=== PATIENT | male | born 2000 | race Caucasian/White ===

== ENCOUNTER 2023-10-30 19:47 | Emergency (ER) | payer BC, SELFPAY ==
[2023-10-30 20:01] VITALS: BP 142/79; PULSE 80; RESP 16; TEMP 36.1; O2SAT 100; BMI 21.0
--- NOTE | 2023-10-30 20:04 | ED_ITS ---
HPI - General Adult General Chief complaint: Head Injury/Pain Stated complaint: Hit in the face by softball Saturday Time Seen by Provider: 10/30/23 20:04 History of Present Illness HPI narrative: Pt aox4, ABCs intact. Pt arrives for evaluation of possible broken nose. Patient was hit in the face on Saturday night by a softball. Patient states that the ball was being thrown to him and it hit him square in the nose. 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 23 year old man presenting to the emergency department with concern of injury to his face. Accompanied by his dad. Mom is not here in particular is concerned. Has a history of cleft palate and extensive surgeries. Two days ago was playing softball running to when took a hard throw in the nose/upper dentition. Is not having any pain. Was notably more swollen/deformed before; now improved. Is not having any difficulty breathing. Mild changes yet to his nose but otherwise looking more back to normal. Apparently did bend his permanent upper dental retainer. Otherwise teeth do feel like they are normal. Does have follow-up this week with dental/orthodontics. There was no loss of cons ciousness. Is not having headaches or general fogginess. They just wanted to be assessed if anything more needs to be done/evaluated. Related Data Home Medications Medication Instructions Recorded Confirmed No Known Home Medications 10/30/23 10/30/23 Allergies Allergy/AdvReac Type Severity Reaction Status Date / Time No Known Drug Allergies Allergy Verified 10/30/23 20:01 Review of Systems Status of ROS: Reports: 6 or more systems reviewed and unremarkable except as noted in History and below Exam Narrative: Exam Narrative: Pleasant. NAD. Breathing easily. Does not sound to be congested. There is mild swelling right of the nose without depression to the nasal bones. No tenderness to palpation over the nasal bridge or elsewhere. No deformity appreciated to zygoma. No septal hematoma. A little crowding of the nasal mucosa on the right side. Oropharyngeal exam with expected postoperative ch anges. Tooth number 9 looks to have some erythema or line of clot along the gum line but does not otherwise appear to be unstable or mobile. This is held in place by the retainer is noted. Const: Vital Signs, click to edit/add: Vital Signs - 24 hr 10/30/23 20:01 Temperature 97 F L Pulse Rate [Pulse Oximeter] 80 Respiratory Rate 16 Blood Pressure [Ri ght Upper Arm] 142/79 H Pulse Oximetry 100 Oxygen Delivery Me thod Room Air Documenting provider has reviewed patient's vital signs: yes Course Vital Signs Vital signs: Initial Vital Signs Temperature 97 F L 10/30/23 20:01 Temperature Source Temporal Artery Scan 10/30/23 20:01 Pulse Rate 80 10/30/23 20:01 Pulse Rhythm Regular 10/30/23 20:01 Pulse Strength 3+ Normal 10/30/23 20:01 Respiratory Rate 16 10/30/23 20:01 Blood Pressure 142/79 H 10/30/23 20:01 Blood Pressure Mean 100 10/30/23 20:01 Blood Pressure Position Sitting 10/30/23 20:01 Pulse Oximetry 100 10/30/23 20:01 Oxygen Delivery Method Room Air 10/30/23 20:01 Vital Signs Temperature 97 F L 10/30/23 20:01 Pulse Rate 80 10/30/23 20:01 Respiratory Rate 16 10/30/23 20:01 Blood Pressure 142/79 H 10/30/23 20:01 Pulse Oximetry 100 10/30/23 20:01 Oxygen Delivery Method Room Air 10/30/23 20:01 Temperature 97 F L 10/30/23 20:01 Pulse Rate 80 10/30/23 20:01 Respiratory Rate 16 10/30/23 20:01 Blood Pressure 142/79 H 10/30/23 20:01 Pulse Oximetry 100 10/30/23 20:01 Oxygen Delivery Method Room Air 10/30/23 20:01 Medical Decision Making MDM Narrative Medical decision making narrative: It sounds as though cosmetic has improved and overall is not of concern. I do not see anything else that would require intervention. He is not having any difficulty breathing noting that his breathing is per normal. Have dental follow-up. Retainer would limit CT imaging due to scatter and x-ray imaging I do not think would offer much more at this point. Could do images now or wait to see if concerning deformity remains after swelling fully resolved; furthermore rib fracture line might be more visible than with callus formation. I did offer reassurance at this point. They have decided to wait and see. Does not seem to have any symptoms consistent with concussion. See patient discharge plan for further discussion Discharge Plan Discharge Clinical Impression: Contusion of nose, Closed head injury, Dental injury Patient Disposition: Home w/ Parent or Adult Condition: Stable Additional Instructions: I would recommend icing your nose -- screw top ice bag filled with ice water -- a couple of times daily over the next few days. Reassess at that point, if you think that there remains some abnormality, with ENT or your prior surgical group. Definitely follow-up with your dental/orthodontic care as planned. Prescriptions: No Action No Known Home Medications Follow Up/Referrals: Marcel Rob MD [Primary Care Provider] - Stand Alone Forms: [employer] Info Instructions
== END 2023-10-30 20:50 | disposition home or self-care (01) ==
LOC: ED 20:49
PROVIDERS: Emergency Provider Family Medicine; PCP Physician Assistant Medical
DX: S00.33XA Contusion of nose, initial encounter (principal); S09.93XA Unspecified injury of face, initial encounter; W21.07XA Struck by softball, initial encounter; Y93.64 Activity, baseball
CPT/HCPCS: 99282; 99283; 99284